=== PATIENT | female | born 1965 | race Caucasian/White ===

== ENCOUNTER 2024-04-22 16:47 | Inpatient (IN) | payer BC ==
[~2024-04-22] VITALS: Ht 170.2 cm; Wt 72.3 kg
[2024-04-22] VITALS (9 sets, daily range): BP systolic 89–173; PULSE 53–87; RESP 13–22; TEMP 97.1–98.3; O2SAT 99–100
[2024-04-22] MEDS: ONDANSETRON HCL 4 MG/2 ML VIAL IVP ONE (16:59)
[2024-04-22] MEDS: NACL 0.9% 2,000 ML IV ONE (17:06)
[2024-04-22 17:08] LABS: HEMATOCRIT 37.5 % (36-48); HEMOGLOBIN 12.6 g/dL (12.0-16.0); MEAN CORPUSCULAR HEMOGLOBIN 32 pg (27-31)
[2024-04-22] MEDS ORDERED: activated charcoaL 50 GM/240 ML ORAL.SUSP PO ONE (17:08)
[2024-04-22 17:13] LABS: BASOPHILS % (AUTO) 0.7 % (0.0-2.0); EOSINOPHILS # (AUTO) 0.1 K/uL (0.0-0.4); EOSINOPHILS % (AUTO) 2.8 % (0.0-4.0); LYMPHOCYTES # (AUTO) 1.5 K/uL (1.0-5.5); LYMPHOCYTES % (AUTO) 29.6 % (20.5-51.5); MEAN CORPUSCULAR HGB CONC 34 % (32-36); MEAN CORPUSCULAR VOLUME 95 fL (79.0-98.0); MONOCYTES # (AUTO) 0.3 K/uL (0.0-1.0); MONOCYTES % (AUTO) 5.7 % (1.7-9.3); NEUTROPHILS # (AUTO) 3.1 K/uL (1.8-7.7); NEUTROPHILS % (AUTO) 61.2 % (40.0-70.0); PLATELET COUNT (AUTO) 203 K/uL (130-430); RED BLOOD CELL COUNT(AUTO) 3.94 MIL/uL (4.2-6.2); RED CELL DISTRIBUTION WIDTH 14.1 % (9.0-15.0); WHITE BLOOD COUNT (AUTO) 5.1 K/uL (4.8-10.8)
[2024-04-22] MEDS ORDERED: PROMETHAZINE INJ.Non-Formulary 25 MG/ML AMP IVP ONE (17:15)
[2024-04-22 17:23] LABS: ALCOHOL, BLOOD 42 mg/dL (<10); ANION GAP 12 (5-15); CALCIUM 8.1 mg/dL (8.4-11.0); CARBON DIOXIDE 25 mmol/L (23-29); CHLORIDE 103 mmol/L (98-107); CREATININE 1.07 mg/dL (0.55-1.30); GFR AFRICAN AMERICAN 68 mL/min (>90); GLUCOSE 117 mg/dL (74-106); POTASSIUM 4.4 mmol/L (3.5-5.1); SODIUM SERUM 140 mmol/L (136-145); UREA NITROGEN, BLOOD 15 mg/dL (8-21)
[2024-04-22 17:28] LABS: ACETAMINOPHEN < 1 ug/mL (1-30); GFR NON AFRICAN-AMERICAN 56 mL/min (>90)
[2024-04-22] MEDS: activated charcoaL 50 GM/240 ML ORAL.SUSP PO ONE (17:38)
[2024-04-22] MEDS: PROPOFOL DRIP 100 ML IV ONE (17:38)
[2024-04-22 17:56] LABS: ABG O2 SAT% ESTIMATE 99.8 % (94.0-98.0); BLOOD GAS BASE EXCESS -6.4 mmol/L (-2.0-3.0); BLOOD GAS HCO3 17.1 mmol/L (21.0-28.0); BLOOD GAS PCO2 28.1 mmHg (32.0-45.0); BLOOD GAS PH 7.402 (7.350-7.450)
[2024-04-22] MEDS: CALCIUM CHLORIDE 1 GM in NS 100 ML IV ONE ×2 (18:00→18:08)
[2024-04-22 18:01] LABS: ALLEN'S TEST POSITIVE (P); BLOOD GAS PO2 408.8 mmHg (83.0-108.0)
[2024-04-22] MEDS: GLUCAGON,HUMAN RECOMBINANT 1 MG VIAL IVP ONE ×2 (18:01→20:30)
[2024-04-22] MEDS: NACL 0.9% 1,000 ML IV ONE (18:08)
[2024-04-22] MEDS ORDERED: GLUCAGON,HUMAN RECOMBINANT 1 MG VIAL ONE (18:39)
[2024-04-22] MEDS ORDERED: GLUCAGON,HUMAN RECOMBINANT 1 MG VIAL IV SCH (19:00)
[2024-04-22] MEDS ORDERED: PROP20TA7 PO (19:29)
[2024-04-22] MEDS ORDERED: [UNRECOGNIZED DRUG - CODE] PO (19:29)
[2024-04-22] MEDS ORDERED: OMEP40CA20 PO (19:29)
[2024-04-22] MEDS ORDERED: TRAZ-251 PO (19:29)
[2024-04-22 20:23] LABS: COVID19 ANTIGEN SOFIA FIA NEGATIVE (NEGATIVE)
[2024-04-22 20:24] LABS: INFLUENZA TYPE A Negative (NEGATIVE); INFLUENZA TYPE B NEGATIVE (NEGATIVE)
[2024-04-22 20:50] LABS: BARBITURATE, URINE NEGATIVE (NEG <=200); BENZODIAZEPINE, URINE POSITIVE (NEG <=150); CANNABINOID, URINE NEGATIVE (NEG <=50); COCAINE, URINE NEGATIVE (NEG <=150); METHAMPHETAMINES SCREEN,URINE NEGATIVE (NEG <=500); OPIATE, URINE NEGATIVE (NEG <=100); PHENCYCLIDINE SCREEN,URINE NEGATIVE (NEG <=25); UR TRICYCLIC ANTIDEPRESSANTS NEGATIVE (NEG <=300); URINE AMPHETAMINE NEGATIVE (NEG <=500); URINE METHADONE NEGATIVE (NEG <=200); URINE OXYCODONE SCREEN NEGATIVE (NEG <=100)
[2024-04-22] MEDS: NACL 0.9% 1,000 ML IV SCH (21:35)
[2024-04-22] MEDS: ONDANSETRON HCL 4 MG/2 ML VIAL IVP PRN (23:40)
[2024-04-22] MEDS ORDERED: hydrALAZINE HCL 20 MG/ML VIAL IVP PRN (23:45)
[2024-04-23] VITALS (30 sets, daily range): BP systolic 116–173; PULSE 60–81; RESP 7–25; TEMP 97.9–98.4; O2SAT 96–100
[2024-04-23] MEDS: PROPOFOL DRIP 100 ML IV PRN (00:43)
[2024-04-23 06:35] LABS: BASOPHILS % (AUTO) 0.3 % (0.0-2.0); EOSINOPHILS # (AUTO) 0.2 K/uL (0.0-0.4); EOSINOPHILS % (AUTO) 2.1 % (0.0-4.0); HEMATOCRIT 36.4 % (36-48); HEMOGLOBIN 12.1 g/dL (12.0-16.0); LYMPHOCYTES # (AUTO) 0.9 K/uL (1.0-5.5); LYMPHOCYTES % (AUTO) 11.8 % (20.5-51.5); MEAN CORPUSCULAR HEMOGLOBIN 31 pg (27-31); MEAN CORPUSCULAR HGB CONC 33 % (32-36); MEAN CORPUSCULAR VOLUME 95 fL (79.0-98.0); MONOCYTES # (AUTO) 0.6 K/uL (0.0-1.0); MONOCYTES % (AUTO) 7.3 % (1.7-9.3); NEUTROPHILS # (AUTO) 6.2 K/uL (1.8-7.7); NEUTROPHILS % (AUTO) 78.5 % (40.0-70.0); PLATELET COUNT (AUTO) 169 K/uL (130-430); RED BLOOD CELL COUNT(AUTO) 3.85 MIL/uL (4.2-6.2); RED CELL DISTRIBUTION WIDTH 14.2 % (9.0-15.0); WHITE BLOOD COUNT (AUTO) 7.9 K/uL (4.8-10.8)
[2024-04-23] MEDS ORDERED: PROPOFOL DRIP 100 ML IV PRN (06:45)
[2024-04-23 07:23] LABS: ALBUMIN 3.2 g/dL (3.4-4.8); CALCIUM 8.3 mg/dL (8.4-11.0); CREATININE 0.77 mg/dL (0.55-1.30); PHOSPHORUS 3.6 mg/dL (2.7-4.5); POTASSIUM 3.7 mmol/L (3.5-5.1); TOTAL BILIRUBIN 0.7 mg/dL (0.0-1.0); TOTAL PROTEIN, SERUM 6.2 g/dL (6.4-8.3)
[2024-04-23 09:55] LABS: BLOOD GAS BASE EXCESS -0.3 mmol/L (-2.0-3.0); BLOOD GAS HCO3 19.7 mmol/L (21.0-28.0); BLOOD GAS PCO2 21.8 mmHg (32.0-45.0); BLOOD GAS PO2 128.9 mmHg (83.0-108.0)
[2024-04-23 10:01] LABS: ALLEN'S TEST POSITIVE (P); BLOOD GAS PH 7.574 (7.350-7.450)
[2024-04-23] MEDS ORDERED: HEPARIN 25,000 UNITS/D5W 250ML 250 ML IV PRN (12:00)
[2024-04-23] MEDS: *HEPARIN PER PHARMACY XX ONE (13:00)
[2024-04-23] MEDS ORDERED: HEPARIN SODIUM,PORCINE 3000 UNITS/0.6 ML BOLUS IVP PRN (13:15)
[2024-04-23] MEDS ORDERED: HEPARIN SODIUM,PORCINE 2000 UNITS/0.4 ML BOLUS IVP PRN (13:15)
[2024-04-23] MEDS: ACETAMINOPHEN 650 MG/20.3 ML UDC GT PRN (14:04)
[2024-04-23] MEDS: HEPARIN 25,000 UNITS in 250 ML PREMIX IV PRN (15:08)
[2024-04-24] VITALS (13 sets, daily range): BP systolic 111–132; PULSE 73–85; RESP 12–21; TEMP 97.8–98.4; O2SAT 92–100
[2024-04-24 05:40] LABS: BASOPHILS % (AUTO) 0.2 % (0.0-2.0); EOSINOPHILS # (AUTO) 0.1 K/uL (0.0-0.4); EOSINOPHILS % (AUTO) 1.1 % (0.0-4.0); HEMATOCRIT 37.5 % (36-48); HEMOGLOBIN 12.7 g/dL (12.0-16.0); LYMPHOCYTES # (AUTO) 0.9 K/uL (1.0-5.5); LYMPHOCYTES % (AUTO) 8.9 % (20.5-51.5); MEAN CORPUSCULAR HEMOGLOBIN 32 pg (27-31); MEAN CORPUSCULAR HGB CONC 34 % (32-36); MEAN CORPUSCULAR VOLUME 94 fL (79.0-98.0); MONOCYTES # (AUTO) 0.6 K/uL (0.0-1.0); NEUTROPHILS # (AUTO) 8.2 K/uL (1.8-7.7); NEUTROPHILS % (AUTO) 83.8 % (40.0-70.0); PLATELET COUNT (AUTO) 166 K/uL (130-430); RED BLOOD CELL COUNT(AUTO) 3.97 MIL/uL (4.2-6.2); RED CELL DISTRIBUTION WIDTH 13.8 % (9.0-15.0); WHITE BLOOD COUNT (AUTO) 9.8 K/uL (4.8-10.8)
[2024-04-24] MEDS ORDERED: COMMUNICATION ORDER XX PRN (10:45)
[2024-04-24] MEDS: TIROSINT PO SCH (12:25)
[2024-04-25] VITALS (7 sets, daily range): BP systolic 128–151; PULSE 78–91; RESP 18; TEMP 97.6–99.6; O2SAT 95–96
[2024-04-25 05:16] LABS: BASOPHILS % (AUTO) 0.3 % (0.0-2.0); EOSINOPHILS # (AUTO) 0.1 K/uL (0.0-0.4); EOSINOPHILS % (AUTO) 1.4 % (0.0-4.0); HEMATOCRIT 37.1 % (36-48); HEMOGLOBIN 12.3 g/dL (12.0-16.0); LYMPHOCYTES # (AUTO) 1.1 K/uL (1.0-5.5); LYMPHOCYTES % (AUTO) 15.6 % (20.5-51.5); MEAN CORPUSCULAR HEMOGLOBIN 31 pg (27-31); MEAN CORPUSCULAR HGB CONC 33 % (32-36); MEAN CORPUSCULAR VOLUME 95 fL (79.0-98.0); MONOCYTES # (AUTO) 0.6 K/uL (0.0-1.0); NEUTROPHILS # (AUTO) 5.4 K/uL (1.8-7.7); NEUTROPHILS % (AUTO) 74.7 % (40.0-70.0); PLATELET COUNT (AUTO) 181 K/uL (130-430); RED BLOOD CELL COUNT(AUTO) 3.93 MIL/uL (4.2-6.2); RED CELL DISTRIBUTION WIDTH 13.8 % (9.0-15.0); WHITE BLOOD COUNT (AUTO) 7.2 K/uL (4.8-10.8)
[2024-04-25] MEDS: ATORVASTATIN 20 MG TABLET PO SCH (10:00)
[2024-04-25] MEDS: ASPIRIN 81 MG TAB.CHEW PO ONE (11:46)
[2024-04-25] MEDS: METOPROLOL SUCCINATE 25 MG TAB.SR.24H (TOPROL XL) PO ONE (11:49)
[2024-04-25] MEDS: LOSARTAN POTASSIUM 25 MG TABLET PO ONE (11:51)
[2024-04-25] MEDS: ATORVASTATIN 20 MG TABLET PO ONE (12:07)
[2024-04-25] MEDS: ALPRAZolam 0.25 MG TABLET PO PRN (18:31)
[2024-04-26 00:30] VITALS: BP_SYST 130; PULSE 88; RESP 18; TEMP 98.1; O2SAT 97
[2024-04-26 04:56] VITALS: BP_SYST 130; PULSE 88; RESP 18; TEMP 98.1; O2SAT 97
[2024-04-26 07:16] LABS: BASOPHILS % (AUTO) 0.5 % (0.0-2.0); EOSINOPHILS # (AUTO) 0.1 K/uL (0.0-0.4); EOSINOPHILS % (AUTO) 1.6 % (0.0-4.0); HEMATOCRIT 37.8 % (36-48); HEMOGLOBIN 12.8 g/dL (12.0-16.0); LYMPHOCYTES # (AUTO) 1.5 K/uL (1.0-5.5); LYMPHOCYTES % (AUTO) 23.3 % (20.5-51.5); MEAN CORPUSCULAR HEMOGLOBIN 32 pg (27-31); MEAN CORPUSCULAR HGB CONC 34 % (32-36); MEAN CORPUSCULAR VOLUME 94 fL (79.0-98.0); MONOCYTES # (AUTO) 0.5 K/uL (0.0-1.0); MONOCYTES % (AUTO) 8.1 % (1.7-9.3); NEUTROPHILS # (AUTO) 4.3 K/uL (1.8-7.7); NEUTROPHILS % (AUTO) 66.5 % (40.0-70.0); PLATELET COUNT (AUTO) 223 K/uL (130-430); RED BLOOD CELL COUNT(AUTO) 4.04 MIL/uL (4.2-6.2); RED CELL DISTRIBUTION WIDTH 13.7 % (9.0-15.0); WHITE BLOOD COUNT (AUTO) 6.4 K/uL (4.8-10.8)
[2024-04-26 08:30] VITALS: O2SAT 97
[2024-04-26] MEDS: LOSARTAN POTASSIUM 25 MG TABLET PO SCH (08:50)
[2024-04-26] MEDS: METOPROLOL SUCCINATE 25 MG TAB.SR.24H (TOPROL XL) PO SCH (08:51)
[2024-04-26 15:01] VITALS: BP_SYST 150; PULSE 86; RESP 14; TEMP 98.4; O2SAT 98
[2024-04-26 16:09] VITALS: BP_SYST 131; PULSE 87; RESP 16; TEMP 97.9; O2SAT 99
[2024-04-26 20:00] VITALS: BP_SYST 128; PULSE 82; RESP 14; TEMP 98.3; O2SAT 96
[2024-04-27] VITALS: BP_SYST 134; PULSE 79; RESP 14; TEMP 97.6; O2SAT 96
[2024-04-27 04:42] LABS: BASOPHILS % (AUTO) 0.3 % (0.0-2.0); EOSINOPHILS # (AUTO) 0.1 K/uL (0.0-0.4); EOSINOPHILS % (AUTO) 1.9 % (0.0-4.0); HEMATOCRIT 32.9 % (36-48); HEMOGLOBIN 11.5 g/dL (12.0-16.0); LYMPHOCYTES # (AUTO) 1.2 K/uL (1.0-5.5); LYMPHOCYTES % (AUTO) 20.7 % (20.5-51.5); MEAN CORPUSCULAR HEMOGLOBIN 32 pg (27-31); MEAN CORPUSCULAR HGB CONC 35 % (32-36); MEAN CORPUSCULAR VOLUME 92 fL (79.0-98.0); MONOCYTES # (AUTO) 0.5 K/uL (0.0-1.0); MONOCYTES % (AUTO) 8.7 % (1.7-9.3); NEUTROPHILS % (AUTO) 68.4 % (40.0-70.0); PLATELET COUNT (AUTO) 205 K/uL (130-430); RED BLOOD CELL COUNT(AUTO) 3.56 MIL/uL (4.2-6.2); RED CELL DISTRIBUTION WIDTH 13.8 % (9.0-15.0); WHITE BLOOD COUNT (AUTO) 5.9 K/uL (4.8-10.8)
[2024-04-27 08:00] VITALS: BP_SYST 140; PULSE 96; RESP 16; TEMP 98; O2SAT 96
[2024-04-27 08:45] VITALS: BP_SYST 140; PULSE 76; RESP 16; TEMP 98.4; O2SAT 96
== END 2024-04-27 11:10 | disposition short-term general hospital (02) | DRG 917 ==
LOC: SED 16:47 → SIC 18:55 → STU 04-24 15:56
PROVIDERS: ADMIT Student in an Organized Health Care Education/Training Program; ATTEND Student in an Organized Health Care Education/Training Program
PROC: 5A1935Z Respiratory Ventilation, Less than 24 Consecutive Hours (ICD-10-PCS; principal; 2024-04-22)
PROC: 0BH17EZ Insertion of Endotracheal Airway into Trachea, Via Natural or Artificial Opening (ICD-10-PCS; 2024-04-22)
DX: T43.212A Poisoning by selective serotonin and norepinephrine reuptake inhibitors, intentional self-harm, initial encounter (principal); G92.9 Unspecified toxic encephalopathy; I21.4 Non-ST elevation (NSTEMI) myocardial infarction; J96.01 Acute respiratory failure with hypoxia; I10 Essential (primary) hypertension; E78.00 Pure hypercholesterolemia, unspecified; E03.9 Hypothyroidism, unspecified; F10.90 Alcohol use, unspecified, uncomplicated; K21.9 Gastro-esophageal reflux disease without esophagitis; T51.3X2A Toxic effect of fusel oil, intentional self-harm, initial encounter; Y92.89 Other specified places as the place of occurrence of the external cause; Z79.899 Other long term (current) drug therapy; Z88.8 Allergy status to other drugs, medicaments and biological substances
CPT/HCPCS: 36415; 36600; 71045; 74018; 80048; 80053; 80307; 82803; 82948; 83735; 83880; 84100; 84484; 85025; 85730; 87070; 87081; 87205; 92610-GN; 93005; 93306; 94002; 94070; 94640; 94760; 99291; 99292; G0378; G0480; G0482; J1610; J1644; J2405; J2550; J2704